=== PATIENT | female | born 1985 | race Caucasian/White ===

== ENCOUNTER 2016-12-13 09:41 | Inpatient (IN) | payer MEDICAID, OTHER ==
[2016-12-13 09:57] VITALS: BMI 33.8
[2016-12-13] MEDS ORDERED: Nalbuphine 20 mg/ml Inj (1 ml) IVP PRN (10:00)
[2016-12-13] MEDS ORDERED: Lactated Ringer's 1,000 ML IV SCH ×2 (10:00→12:15)
--- NOTE | 2016-12-13 10:12 | OBADHP ---
Datetime: 12/13/2016 10:03 Admit Comment, IP Provider: at 39weeks came with c/o srom at 9 am, fluid gushing with occ ctxs, no vb,+fm. obhx primi pmh den med pnv all nkda psh de soch denies a/p at 38=weeks prom admit to l_d npo/ivf labs cytotec pain managem cont mariana and efm anticipate Pelvic Type - PN: Adequate Extremities - PN: Normal Abdomen - PN: Normal Back - PN: Normal Breast - PN: Not Done Lungs - PN: Normal Heart - PN: Normal Thyroid - PN: Not Done Neurologic - PN: Normal HEENT - PN: Normal General - PN: Normal FHR - Baseline A Provider: 130 Amniotic Fluid Color, Provider: Clear Membranes, Provider: Ruptured Contraction Comments Provider: irrg Comments, ACOG Physical Exam: gravid,non tender ext no edema,no calf ten sse +pooling,+nitrazine ve /-3 IP Hx Assessment: The History has been Reviewed and is Current Vital Signs Provider: Reviewed; Within Normal Limits IP Chief Complaint: Suspected ruptured membranes NICHD Variability Prov Fetus A: Moderate 6-25bpm NICHD Decel Fetus A IP Provider: None Dilatation, Provider: 1 Effacement, Provider: 50 Station, Provider: -3 Genitourinary Exam: Normal DTRs - PN: Normal EGA AdmitDate IP: 38.2 IP Adm Impression: Term, intrauterine ; Ruptured Membranes IP Admit Plan: Admit to unit; Initiate labor protocol
[2016-12-13 10:45] LABS: BASO # 0.1 K/uL (0.0-0.2); BASO % 1.1 % (0.0-2.0); EOS # 0.1 K/uL (0.0-0.7); EOS % 0.7 % (0.0-4.0); HEMATOCRIT 36.9 % (34.0-47.0); LYMPH # 2.7 K/uL (1.0-4.3); LYMPH % 20.2 % (20.0-40.0); MEAN CELL VOLUME 89.5 fL (81.0-99.0); MEAN CORPUSCULAR HEMOGLOBIN 29.9 pg (27.0-31.0); MEAN CORPUSCULAR HGB CONC 33.4 g/dL (33.0-37.0); MEAN PLATELET VOLUME 9.6 fL (7.2-11.7); MONO % 7.6 % (0.0-10.0); NRBC % 0.1 % (0.0-2.0); RED CELL DISTRIBUTION WIDTH 13.5 % (11.5-14.5); WHITE BLOOD COUNT 13.4 K/uL (4.8-10.8)
[2016-12-13 10:58] LABS: CHLORIDE 102 mmol/L (98-107)
[2016-12-13 10:59] LABS: POTASSIUM 3.7 mmol/L (3.6-5.2); SODIUM 137 mmol/L (132-148)
[2016-12-13 11:01] LABS: ALB/GLOB RATIO 0.9 (1.0-2.1); AST/SGOT 24 U/L (14-36); BILIRUBIN,TOTAL 0.4 mg/dL (0.2-1.3); BLOOD UREA NITROGEN 9 mg/dL (7-17); CARBON DIOXIDE 21 mmol/L (22-30); GFR AFRICAN-AMERICAN > 60; TOTAL PROTEIN 6.3 g/dL (6.3-8.3)
[2016-12-13 11:02] LABS: ALKALINE PHOSPHATASE 153 U/L (38-126); ALT/SGPT 33 U/L (9-52); CALCIUM 8.6 mg/dl (8.6-10.4); GLUCOSE,RANDOM 88 mg/dL (65-105)
[2016-12-13 11:03] LABS: RBC URINE 2 /hpf (0-3); URINE BILIRUBIN NEGATIVE (NEGATIVE); URINE BLOOD NEGATIVE (NEGATIVE); URINE COLOR Yellow (YELLOW); URINE GLUCOSE (UA) NORMAL (Normal); URINE KETONE NEGATIVE (NEGATIVE); URINE LEUKOCYTE ESTERASE NEG Leu/uL (Negative); URINE PROTEIN NEGATIVE (NEGATIVE); URINE UROBILINOGEN NORMAL mg/dL (0.2-1.0); WBC URINE 1 /hpf (0-5)
[2016-12-13] MEDS ORDERED: cefOXitin IV 2 gm in Dextrose 2 GM/50 ML BAG IVPB ONE (11:04)
[2016-12-13] MEDS ORDERED: Sodium Citrate/Citric Acid 15 ml Sol PO ONE (11:04)
[2016-12-13] MEDS ORDERED: Oxycodone/Acetaminophen 5/325 mg Tab PO PRN (11:05)
--- NOTE | 2016-12-13 11:08 | OBPN ---
Datetime: 12/13/2016 11:06 IP Progress Impression: Non-reassuring heart rate IP Informed Consent Obtain: Section Delivery IP Procedures: Sterile Vag Exam Contraction Comments Provider: q1-3 FHR - Baseline A Provider: 130 IP Progress Note Comment: pt was examined at bed side ve /-3 fhr 130 mod josr wth ctg 11 tracing remote from delivery primary section called r/a/b discussed NICHD Variability Prov Fetus A: Moderate 6-25bpm Dilatation, Provider: 1 Effacement, Provider: 50 Station, Provider: -3 NICHD Decel Fetus A IP Provider: Variable Datetime: 12/13/2016 10:03 Membranes, Provider: Ruptured Amniotic Fluid Color, Provider: Clear Vital Signs Provider: Reviewed; Within Normal Limits
--- NOTE | 2016-12-13 11:09 | PCM.SURG1 ---
Surgeon's Initial Post Op Note - Surgeon's Notes Surgeon: dr burch Director Agency [employer] Strategic Partnerships: dr ash Type of Anesthesia: Spinal Anesthesia Administered By: dr liu Pre-Operative Diagnosis: 31 yr at 38+weeks prom with non reassuring tracing Operative Findings: see the op report Post-Operative Diagnosis: same Operation Performed: primary csarean section Specimen/Specimens Removed: cord blood. fetus. placente Estimated Blood Loss: EBL {In ML}: 800 Blood Products Given: N/A Drains Used: No Drains Post-Op Condition: Good Date of Surgery/Procedure: 12/13/16 Time of Surgery/Procedure: 09:00
[2016-12-13] MEDS ORDERED: Morphine 1 mg/ml preservative-free Inj(Duramorph) ONE (11:36)
[2016-12-13] MEDS ORDERED: Dexamethasone 4 mg/1 ml IVP PRN (12:11)
[2016-12-13] MEDS ORDERED: DiphenhydrAMINE 50 mg/ml Inj IVP PRN (12:11)
[2016-12-13] MEDS ORDERED: HYDROmorphone 0.5 mg/0.5 ml ISec IVP PRN (12:11)
[2016-12-13] MEDS ORDERED: DiphenhydrAMINE 50 mg/ml Inj IVP STA (15:02)
[2016-12-13] MEDS: Simethicone 80 mg Chewtab PO SCH ×3 (15:05→22:50)
[2016-12-14] MEDS: Oxycodone/Acetaminophen 5/325 mg Tab PO PRN ×2 (05:49→10:06)
[2016-12-14 08:02] LABS: HEMATOCRIT 36.3 % (34.0-47.0); MEAN CELL VOLUME 88.6 fL (81.0-99.0); MEAN CORPUSCULAR HEMOGLOBIN 30.3 pg (27.0-31.0); MEAN CORPUSCULAR HGB CONC 34.2 g/dL (33.0-37.0); MEAN PLATELET VOLUME 8.9 fL (7.2-11.7); RED CELL DISTRIBUTION WIDTH 13.6 % (11.5-14.5)
[2016-12-14 08:04] LABS: WHITE BLOOD COUNT 20.4 K/uL (4.8-10.8)
[2016-12-14] MEDS: Simethicone 80 mg Chewtab PO SCH ×4 (10:05→21:23)
[2016-12-14] MEDS ORDERED: Magnesium Hydroxide Susp 30 ml UD PO ONE (16:00)
[2016-12-15] MEDS: Oxycodone/Acetaminophen 5/325 mg Tab PO PRN ×5 (00:50→22:10)
[2016-12-15 08:35] LABS: BASO # 0.1 K/uL (0.0-0.2); BASO % 0.7 % (0.0-2.0); EOS # 0.2 K/uL (0.0-0.7); EOS % 1.4 % (0.0-4.0); HEMATOCRIT 37.2 % (34.0-47.0); LYMPH # 3.1 K/uL (1.0-4.3); LYMPH % 19.9 % (20.0-40.0); MEAN CORPUSCULAR HEMOGLOBIN 29.7 pg (27.0-31.0); MEAN CORPUSCULAR HGB CONC 32.7 g/dL (33.0-37.0); MEAN PLATELET VOLUME 9.2 fL (7.2-11.7); MONO # 1.4 K/uL (0.0-0.8); MONO % 8.7 % (0.0-10.0); NRBC % 0.1 % (0.0-2.0); RED CELL DISTRIBUTION WIDTH 14.2 % (11.5-14.5); WHITE BLOOD COUNT 15.7 K/uL (4.8-10.8)
[2016-12-15 08:43] LABS: MEAN CELL VOLUME 90.9 fL (81.0-99.0)
[2016-12-15] MEDS: Simethicone 80 mg Chewtab PO SCH ×4 (10:06→22:09)
--- NOTE | 2016-12-15 13:20 | OBPPN ---
Datetime: 12/15/2016 13:18 PP Pain Prov: Within normal limits PP Nausea Prov: Denies PP Flatus Prov: Yes PP Abdomen/Uterus Prov: Normal PP Lochia Prov: Normal PP Extremities Prov: Normal PP C/S Incision Prov: Normal PP Comments Phys Exam Prov: fudus below umblicus_ ext no edema,no susana ten incision clean and dry PP Impression Prov: Normal progression PP Plan Prov: Continue present management PP Progress Note Prov: pt was seen at bed side, pain under control, no n/v, tolerating fdeit, no fev er, no flus pod#2 s/p c/s cont pain miley cont post op care encourage ambulatio Vital Signs Provider PP: Reviewed; Within Normal Limits
[2016-12-15 16:06] VITALS: RESP 20; O2SAT 99
[2016-12-15] MEDS ORDERED: Magnesium Hydroxide Susp 30 ml UD PO ONE (16:15)
[2016-12-16] MEDS: Oxycodone/Acetaminophen 5/325 mg Tab PO PRN ×2 (02:23→07:22)
[2016-12-16 09:09] VITALS: BP 116/80; PULSE 79; TEMP 98
[2016-12-16] MEDS: Simethicone 80 mg Chewtab PO SCH (09:33)
--- NOTE | 2016-12-16 11:00 | OBPPN ---
Datetime: 12/16/2016 10:53 PP Pain Prov: Within normal limits PP Nausea Prov: Denies PP Flatus Prov: Yes PP BM Prov: Yes PP Breasts Prov: Normal PP Heart Prov: Normal PP Lungs Prov: Normal PP Abdomen/Uterus Prov: Normal PP Lochia Prov: Normal PP Vulva/Perineum Prov: Not Done PP CVA Tenderness Prov: Normal PP Extremities Prov: Normal PP C/S Incision Prov: Normal PP Progress Prov: Normal PP Comments Phys Exam Prov: Abdomen: Obese; soft, non distended. (+) BS. Incision with subcuticular closure - clean, dry, intact. Fundus firm, mobile, 1 FB below umbilicus. All other systems reviewed and are negative PP Impression Prov: Normal progression PP Plan Prov: Discharge PP Progress Note Prov: Asked by Dr. Toledo to evaluate patient prior to discharge Patient received in bed, in room 459; just completed . Denies nausea, vomiting. Ambul ating and voiding without difficulty. P.E.: as above. Obese, in NAD. Awake, alert, oriented to time, person and place. Assessment: POD#1, 31 y.o. P1, S/P primary C/S. Afebrile, vital signs stable. Undecided re: contr aception. Clinically stable. Plan: 1) Discharge home 2) See full discharge instructions Vital Signs Provider PP: Reviewed; Within Normal Limits
--- NOTE | 2016-12-17 17:15 | OP ---
DATE OF SURGERY: 12/13/2016 PREOPERATIVE DIAGNOSIS: A [id number] 1 para 0 at 38 plus weeks with premature rupture of membrane, non-reassuring tracing. SURGEON: Dr. Tloedo. ASPHALT BLENDER: Dr. Alexander, who was present throughout the surgery for retraction, exposure, and pushing at the time of delivery. ANESTHESIA: Spinal. ANESTHESIOLOGIST: Dr. Holt. OPERATION PERFORMED: Primary . ESTIMATED BLOOD LOSS: 800 mL. COMPLICATIONS: None. DESCRIPTION OF PROCEDURE: After informed consent was obtained, the patient was brought to the operating table where spinal anesthesia was given. When anesthesia was found to be sufficient, she was prepped and draped in normal sterile fashion. About 2 cm above the pubic bone, a skin incision was made with a knife. Dissection was continued with the Bovie. The fascia was excised on both sides using curved Ann scissors. Facia was first from the site of the umbilicus, then the site of the right side of the pubic bone. Rectus muscle was . Peritoneum was excised. We went into the abdominal cavity. Bladder blade was placed. Bladder flap was created. Lower uterine segment incision was made with a knife. We did this on both sides using curved Ann scissors. Baby was delivered in a direct occipitoposterior position. Cord was clamped and cut. Baby was handed to the awaiting scientist/engineer. Cord gas was taken. Placenta delivered manually, sent to the Pathology. Uterus was exteriorized and cleared of all clots and debris. Uterine incision was closed using #1 Vicryl in running interlocking fashion. Second layer was closed with the same stitch. The incision looked hemostatic. No bleeding. Cul-de-sac was cleared of all the clots and debris. It was placed back to the abdominal cavity. Gutters were cleared of all the clots and debris. Uterine incision looked normal. After that, peritoneum was closed using 2-0 Vicryl in running interlocking fashion. Muscle was closed using 2-0 Vicryl in running interlocking fashion. The fascia was closed using #1 Vicryl in running interlocking fashion. Subcutaneous tissue was closed with 0 Vicryl in interrupted fashion. Skin was closed using 3-0 Monocryl straight needle. The patient tolerated the procedure well. Lap, sponge, and instrument counts were correct x2. Osorio Toledo MD [facility] # [id number]
--- NOTE | 2016-12-25 19:04 | OBDS ---
DELIVERY PERSONNEL Delivery Doctor: kiersten Pitt Nurse: Rebecca Thakkar OBT Adult Education Manager: Elizabeth Lisa RN Anesthesiologist: home MATERNAL INFORMATION Delivery Anesthesia: Spinal Medications in Delivery: pitocin 20/cytotec 1000 Estimated Blood Loss (ml): 800 Placenta Cultured: Yes Maternal Complications: Other Other Maternal Complications: category 3 RN Comments: uneventful delivery of 38.2 wks IUP via primary c/s, to a viable baby boy with apgars 9 -9. Skin to skin initiated for a brief moment in OR Provider Comments: baby deliver in dop. no com cord gas sent peads pres LABOR SUMMARY EDC: 12/25/2016 00:00 No. Babies in Womb: 1 Attempted: No Labor Anesthesia: None LABOR INFORMATION Reason for Induction: Premature Rupture of Membranes Cervical Ripening Agents: Cytotec @ Group B Beta Strep: Negative Steroids Given: None Reason Steroids Not Administered: Not Applicable MEMBRANES Membranes Rupture Method: Spontaneous Rupture of Membranes: 12/13/2016 09:00 Length of Rupture (hrs): 2.78 Amniotic Fluid Color: Clear Amniotic Fluid Amount: Moderate Amniotic Fluid Odor: Normal STAGES OF LABOR Stage 3 hrs: 0 Stage 3 min: 1 CSECTION DELIVERY Primary Indication: Nonreassuring Status CSection Urgency: Emergency CSection Incidence: Primary Labor: N/A Elective: N/A CSection Incision: Lower Uterine Transverse BABY A INFORMATION Delivery Date/Time: 12/13/2016 11:47 Method of Delivery: Born in Route : No : N/A Forceps: N/A Vacuum Extraction: N/A Shoulder Dystocia : No SHOULDER DYSTOCIA BABY A Infant Delivery Date/Time: 12/13/2016 11:47 PRESENTATION/POSITION BABY A Presentation: Cephalic Cephalic Presentation: Vertex Vertex Position: Right Occipital Posterior Breech Presentation: N/A PLACENTA INFORMATION BABY A Placenta Delivery Time : 12/13/2016 11:48 Placenta Method of Delivery: Manual Removal Placenta Status: Delivered SCORES BABY A Heart Rate 1 min: >100 bpm Resp Effort 1 min: Good Cry Reflex Irritability 1 min: Cough or Sneeze or Pulls Away Muscle Tone 1 min: Active Motion Color 1 min: Body Ceiba, Extremities Blue SCORE 1 MIN: 9 Heart Rate 5 min: >100 bpm Resp Effort 5 min: Good Cry Reflex Irritability 5 min: Cough or Sneeze or Pulls Away Muscle Tone 5 min: Active Motion Color 5 min: Body Ceiba, Extremities Blue SCORE 5 MIN: 9 INFORMATION BABY A Gestational Age at Delivery: 38.2 Gestational Status: Term Outcome : Liveborn Condition : Stable Sex: Male IDENTIFICATION/MEDS BABY A ID Band Number: [id number] ID Band Location: Left Leg; Left Arm Sensor Applied: Yes Sensor Number: [id number] Sensor Location : Cord Clamp WEIGHT/LENGTH BABY A Infant Birthweight (gms): 3160 Infant Weight (lb): 6 Weight (oz): 15 Infant Length Inches: 18.50 Infant Length cms: 47.0 CORD INFORMATION BABY A No. Cord Vessels: 3 Nuchal Cord : N/A Nuchal Cord Other: n/a True Knot: n/a Cord pH Baby Arterial: n/a Infant Cord pH Baby Venous: 7.33 Cord Blood Taken: Yes Banking/Donate Info: n/a Infant Suction: Mouth; Nose ASSESSMENT BABY A Complications: None Physical Findings at Delivery: Within Normal Limits Respirations: Appears Normal Piano Accompanist/ALS Called : No Care By: mami nelson/mami art Transferred To: Remains with Mother
== END 2016-12-16 14:15 | disposition home or self-care (01) | DRG 651 ==
LOC: C.EROB 09:41 → C.4D 09:56 → C.4M 15:00
PROVIDERS: ADMIT Obstetrics & Gynecology; ATTEND Obstetrics & Gynecology
PROC: 10D00Z1 Extraction of Products of Conception, Low, Open Approach (ICD-10-PCS; principal; 2016-12-13)
DX: O42.02 Full-term premature rupture of membranes, onset of labor within 24 hours of rupture (principal); O76 Abnormality in fetal heart rate and rhythm complicating labor and delivery; Z3A.38 38 weeks gestation of pregnancy; Z37.0 Single live birth